=== PATIENT | female | born 1990 | race Caucasian/White ===

== ENCOUNTER 2019-05-03 07:58 | Emergency (ER) | payer MEDICAID ==
[~2019-05-03] VITALS: Ht 165.1 cm; Wt 56.5 kg
[2019-05-03 08:02] VITALS: BP 131/83
[2019-05-03] MEDS ORDERED: ketorolac trometh inj. 60 MG/2 ML VIAL IM ONE (11:05)
[2019-05-03] MEDS ORDERED: HYDROcodone/acetaminophen 5mg/325mg tablet PO ONE (11:05)
[2019-05-03] MEDS ORDERED: ondansetron 4mg rapidly disintigrating tab PO ONE (11:05)
[2019-05-03] MEDS ORDERED: acetaminophen 325mg tablet PO ONE (11:05)
--- NOTE | 2019-05-03 11:25 | NUR ---
PT MEDICATED WITH PAIN MEDICATION PAIN WAS 8/10.PT RESTING IN BED RGT NOW,SIGNIFICANT OTHER AT BEDSIDE.
[2019-05-03] MEDS ORDERED: ONDA4TAB6 PO (12:20)
[2019-05-03] MEDS ORDERED: FAMO-128 PO (12:20)
[2019-05-03] MEDS ORDERED: ACET-812 PO (12:20)
[2019-05-03] MEDS ORDERED: HYDR-3965 PO (12:20)
[2019-05-03] MEDS ORDERED: IBUP-1985 PO (12:20)
== END 2019-05-03 12:33 | disposition home or self-care (01) ==
LOC: ER 07:59
DX: M25.551 Pain in right hip (principal); F12.90 Cannabis use, unspecified, uncomplicated; Z98.890 Other specified postprocedural states; Z79.899 Other long term (current) drug therapy
CPT/HCPCS: 73502; 96372; 99284; J1885

== ENCOUNTER 2019-06-25 10:19 | Emergency (ER) | payer MEDICAID ==
[~2019-06-25] VITALS: Ht 165.1 cm; Wt 60.0 kg
[~2019-06-25 10:19] MED LIST: ACET-812 PO; FAMO-128 PO; IBUP-1985 PO; ONDA4TAB6 PO
[2019-06-25] MEDS ORDERED: LORazepam 1 MG tablet PO ONE ×2 (11:10→12:40)
[2019-06-25] MEDS ORDERED: acetaminophen 325mg tablet PO ONE (11:35)
[2019-06-25] MEDS ORDERED: ketorolac trometh inj. 60 MG/2 ML VIAL IM ONE (11:35)
[2019-06-25] MEDS ORDERED: normal saline 1000ml 1,000 ML IV ONE (12:40)
[2019-06-25 13:13] LABS: D-DIMER < 0.19 MG/L FEU (0-0.50)
[2019-06-25 13:15] LABS: ALANINE AMINOTRANSFERASE 37 U/L (12-78); ALBUMIN 3.6 G/DL (3.4-5.0); ALBUMIN/GLOBULIN RATIO 0.9 (1.1-1.5); ALKALINE PHOSPHATASE 84 IU/L (46-116); ANION GAP 9 (8-16); ASPARTATE AMINO TRANSFERASE 21 U/L (10-37); BILIRUBIN,TOTAL 0.1 MG/DL (0.1-1.0); BLOOD UREA NITROGEN 12 MG/DL (7-18); BUN/CREATININE RATIO 15.6 (6.6-38.0); CALCIUM 9.2 MG/DL (8.5-10.1); CHLORIDE 105 MMOL/L (99-107); CREATININE 0.77 MG/DL (0.40-0.90); GLUCOSE 97 MG/DL (70-104); SODIUM 141 MMOL/L (135-145); TOTAL CARBON DIOXIDE 27.1 MMOL/L (24-32); TOTAL PROTEIN 7.8 G/DL (6.4-8.2); eGFR 88 ML/MIN
[2019-06-25 13:17] LABS: BASOPHILS % (AUTO) 0.7 % (0-1); EOSINOPHILS % (AUTO) 0.5 % (0-6); HEMATOCRIT 37.9 % (35.0-45.0); HEMOGLOBIN 12.9 g/dl (12.0-16.0); LYMPHOCYTES # (AUTO) 2.1 X10'3 (1.1-4.8); LYMPHOCYTES % (AUTO) 30.8 % (21-51); MEAN CORPUSCULAR HEMOGLOBIN 30.7 PG (27.0-31.0); MEAN CORPUSCULAR HGB CONC 34.1 g/dL (33.0-36.5); MEAN CORPUSCULAR VOLUME 90.2 FL (78-98); MEAN PLATELET VOLUME 7.1 FL (7.4-10.4); MONOCYTES # (AUTO) 0.4 X10'3 (0-0.9); NEUTROPHILS # (AUTO) 4.3 X10'3 (1.8-7.7); PLATELET COUNT 333 X10'3 (140-440); RED CELL DISTRIBUTION WIDTH 14.4 % (11.5-14.5)
[2019-06-25 14:19] LABS: URINE HCG NEGATIVE (NEG)
[2019-06-25 14:22] LABS: CLARITY,URINE CLEAR (Clear); COLOR,URINE YELLOW (Yellow); GLUCOSE, URINE NEGATIVE (Neg); KETONES,URINE NEGATIVE (Neg); LEUKOCYTE ESTERASE ,URINE NEGATIVE (Neg); NITRITES, URINE NEGATIVE (Neg); OCCULT BLOOD,URINE NEGATIVE (Neg); PROTEIN,URINE NEGATIVE (Neg); UROBILINOGEN,URINE 0.2 E.U/dL (0.2-1.0)
[2019-06-25 14:23] LABS: UA COLLECTION TYPE CLN CATCH MIDSTREAM
[2019-06-25 14:36] LABS: URINE AMPHETAMINE SCREEN NEGATIVE (Neg); URINE BARBITUATE SCREEN NEGATIVE (Neg); URINE BENZODIAZEPINES SCREEN NEGATIVE (Neg); URINE CANNABINOID SCREEN POSITIVE (Neg); URINE COCAINE SCREEN NEGATIVE (Neg); URINE METHADONE SCREEN NEGATIVE (Neg); URINE OPIATE SCREEN NEGATIVE (Neg); URINE PHENCYCLIDINE SCREEN NEGATIVE (Neg)
[2019-06-25] MEDS ORDERED: LORA-269 PO (14:52)
[2019-06-25 15:18] VITALS: BP 123/79
== END 2019-06-25 15:20 | disposition home or self-care (01) ==
LOC: ER 10:20
DX: R00.0 Tachycardia, unspecified (principal); F41.9 Anxiety disorder, unspecified; M25.551 Pain in right hip; G89.29 Other chronic pain; F32.9 Major depressive disorder, single episode, unspecified; F43.10 Post-traumatic stress disorder, unspecified; F12.90 Cannabis use, unspecified, uncomplicated; Z96.643 Presence of artificial hip joint, bilateral; Z98.890 Other specified postprocedural states; Z79.899 Other long term (current) drug therapy
CPT/HCPCS: 36415; 71045; 80053; 80305; 81003; 81025; 84443; 84484; 85025; 85379; 93005; 96372; 99284; J1885; J7030

== ENCOUNTER 2019-08-09 21:58 | Emergency (ER) | payer MEDICAID ==
[~2019-08-09] VITALS: Ht 165.1 cm; Wt 56.8 kg
[~2019-08-09 21:58] MED LIST changes: +LORA-269 PO
[2019-08-09] MEDS ORDERED: LORazepam 2 mg/ml vial IV ONE (23:20)
[2019-08-09] MEDS ORDERED: ondansetron/PF 4mg/2ml inj IM ONE (23:40)
--- NOTE | 2019-08-09 23:53 | NUR ---
PT GIVEN IV ATIVAN FOR ANXIETY. SHE WAS ALSO GIVEN ZOFRAN VIA IV INSTEAD OF IM. DR. STEIN OK WITH IV. PT NOW RESTING COMFORTABLY. EMESIS BAG NEAR PT
[2019-08-10] MEDS ORDERED: morphine 4 MG/ML inj SYRINge IM ONE (00:40)
[2019-08-10 00:59] VITALS: BP 133/83
[2019-08-10] MEDS ORDERED: proCHLORperazine 10 MG/2 ml inj IV ONE (01:00)
== END 2019-08-10 01:21 | disposition home or self-care (01) ==
LOC: ER 21:58
DX: M25.551 Pain in right hip (principal); F41.9 Anxiety disorder, unspecified; F32.9 Major depressive disorder, single episode, unspecified; Z90.49 Acquired absence of other specified parts of digestive tract; Z98.890 Other specified postprocedural states; Z96.643 Presence of artificial hip joint, bilateral; W01.0XXA Fall on same level from slipping, tripping and stumbling without subsequent striking against object, initial encounter; Y93.89 Activity, other specified; Y92.89 Other specified places as the place of occurrence of the external cause; Y99.9 Unspecified external cause status
CPT/HCPCS: 73502; 96372; 96374; 96375; 99284; J0780; J2060; J2270; J2405